=== PATIENT | female | born 1985 | race Caucasian/White ===

== ENCOUNTER 2021-04-02 14:28 | Emergency (ER) | payer MEDICAID ==
--- NOTE | 2021-04-02 15:26 | EDM.PDOC ---
ED HPI GENERAL MEDICAL PROBLEM - General Chief Complaint: Behavioral/Psych Stated Complaint: HARMFUL THOUGHTS Time Seen by Provider: 04/02/21 14:57 Source of Information: Reports: Patient, RN Notes Reviewed History Limitations: Reports: No Limitations - History of Present Illness INITIAL COMMENTS - FREE TEXT/NARRATIVE: Patient is a 35-year-old female who presents to the ER for the evaluation of anxiety and suicidal ideations that were passive. States she has a history of anxiety, and she has been on Zoloft, prazosin, and Lamictal for her mood management states that this seemed to work well when she was taking them however she attended [facility], and she states that they "cut her off because she did not need them anymore" about a month or 2 ago. She has been without her medications and has been feeling fairly okay but states that increased stressors in her home life, and at work have made things somewhat unbearable, and she notes that she had fleeting harmful thoughts last night, so she decided she should get checked out and would like to be put back on her medications. She is not complaining of any suicidal ideations or thoughts at this time. Patient denies any other sick-like symptoms, fever/chills, cough/shortness of breath, nausea/vomiting/diarrhea. - Related Data Allergies Allergy/AdvReac Type Severity Reaction Status Date / Time No Known Allergies Allergy Verified 04/02/21 15:04 Home Meds: Home Meds Prazosin HCl [Prazosin] 4 mg PO BEDTIME #60 capsule 04/02/21 [Rx] Sertraline [Zoloft] 100 mg PO DAILY #30 tab 04/02/21 [Rx] lamoTRIgine [Lamictal] 50 mg PO DAILY #60 tablet 04/02/21 [Rx] Past Medical History [employer] History: Reports: Psychiatric History: Reports: Anxiety, Depression, PTSD Social & Family History - Tobacco Use Tobacco Use Status *Q: Never Tobacco User Second Hand Smoke Exposure: No - Caffeine Use Caffeine Use: Reports: None ED ROS GENERAL - Review of Systems Review Of Systems: Comprehensive ROS is negative, except as noted in HPI. ED EXAM, GENERAL - Physical Exam Exam: See Below Exam Limited By: No Limitations General Appearance: Alert, WD/WN, No Apparent Distress Respiratory/Chest: No Respiratory Distress, Lungs Clear, Normal Breath Sounds, No Accessory Muscle Use, Chest Non-Tender Cardiovascular: Normal Peripheral Pulses, Regular Rate, Rhythm, No Edema Peripheral Pulses: 2+: Radial (L), Radial (R) GI/Abdominal: Normal Bowel Sounds, Soft, Non-Tender, No Distention, No Mass Extremities: Normal Inspection, Normal Capillary Refill Neurological: Alert, Oriented, Normal Cognition, No Motor/Sensory Deficits Psychiatric: Normal Affect, Normal Mood Skin Exam: Warm, Dry, Intact, Normal Color, No Rash Course - Vital Signs Last Recorded V/S: Last Vital Signs Temp 97.0 F 04/02/21 15:03 Pulse 96 04/02/21 15:03 Resp 20 04/02/21 15:03 BP 122/80 04/02/21 15:03 Pulse Ox 100 04/02/21 15:03 - Re-Assessments/Exams Free Text/Narrative Re-Assessment/Exam: 04/02/21 15:33 Patient presents to the ER for evaluation of her mood swings. We will go ahead and place her back on her medications as prescribed. I did get the dosing from clinic pharmacy. Refills of these meds have been sent. I did make it known to her that she will have to follow-up with primary care for ongoing management and further refills she did verbalize understanding. Departure - Departure Time of Disposition: 15:23 Disposition: Home, Self-Care 01 Condition: Good Clinical Impression: Anxiety, Encounter for medication refill - Discharge Information *PRESCRIPTION DRUG MONITORING PROGRAM REVIEWED*: No *COPY OF PRESCRIPTION DRUG MONITORING REPORT IN PATIENT TIKA: No Prescriptions: lamoTRIgine [Lamictal] 50 mg PO DAILY #60 tablet Prazosin HCl [Prazosin] 4 mg PO BEDTIME #60 capsule Sertraline [Zoloft] 100 mg PO DAILY #30 tab Instructions: Managing Anxiety, Adult Referrals: PCP,None [Primary Care Provider] - Forms: ED Department Discharge Additional Instructions: You were evaluated today for your ongoing anxiety, and need to have your medications refilled. After talking with you, I do agree that it would be best that you get started back on your normal medications and prescriptions have been sent for you. This will be Zoloft 100 mg daily, prazosin a total of 4 mg daily, and Lamictal a total of 50 mg daily. This is what the clinic pharmacy told us your last dosing was when you pick these up in December. These medications were electronically sent to [facility]. If you do not have a primary care provider already, I recommend that you follow- up with a provider in our clinic, any family practice provider would be able to provide you with the services. Our clinic telephone number [phone], please call in the morning to obtain an appointment with the provider, for follow-up of your symptoms that prompted your ER visit today. Do not hesitate to return to the ER at any time if symptoms change or worsen. Sepsis Event Note (ED) - Focused Exam Vital Signs: Vital Signs Temp Pulse Resp BP Pulse Ox 04/02/21 15:03 97.0 F 96 20 122/80 100
== END 2021-04-02 15:47 | disposition home or self-care (01) ==
LOC: JD.ED 14:28
DX: F41.9 Anxiety disorder, unspecified (principal); Z76.0 Encounter for issue of repeat prescription
CPT/HCPCS: 99283

== ENCOUNTER 2022-10-20 14:39 | Emergency (ER) | payer MEDICAID, OTHER ==
[2022-10-20] MEDS ORDERED: Ketorolac 30 MG/ML SDV IM ONE (15:06)
[2022-10-20] MEDS ORDERED: Orphenadrine 100 MG Tab.ER PO ONE (15:06)
[2022-10-20 15:56] LABS: BASOPHILS ABSOLUTE AUTO 0.02 K/mm3 (0.01-0.08); BASOPHILS PERCENT AUTO 0.4 % (0.1-1.2); EOSINOPHILS ABSOLUTE AUTO 0.03 K/mm3 (0.04-0.36); EOSINOPHILS PERCENT AUTO 0.7 (0.7-5.8); HEMATOCRIT 26.8 % (34.1-44.9); LYMPHOCYTES ABSOLUTE AUTO 1.21 K/mm3 (1.18-3.74); LYMPHOCYTES PERCENT AUTO 26.6 % (19.3-51.7); MEAN CORPUSCULAR HEMOGLOBIN 18.2 pg (25.6-32.2); MEAN CORPUSCULAR HGB CONC 27.2 g/dl (32.2-35.5); MEAN CORPUSCULAR VOLUME 66.8 fl (79.4-94.8); MEAN PLATELET VOLUME 10.5 fl (9.4-12.3); MONOCYTES ABSOLUTE AUTO 0.41 K/mm3 (0.24-0.36); NEUTROPHILS ABSOLUTE AUTO 2.88 K/mm3 (1.56-6.13); NEUTROPHILS PERCENT AUTO 63.3 % (34.0-71.1); PLATELET COUNT,PLT 246 K/mm3 (182-369); RED BLOOD CELL COUNT 4.01 M/mm3 (3.98-5.22); WHITE BLOOD CELL COUNT,WBC 4.55 K/mm3 (3.98-10.04)
[2022-10-20 16:11] LABS: HEMOGLOBIN 7.3 gm/dl (11.2-15.7)
[2022-10-20 16:19] LABS: A/G RATIO 1.3 (1-2); ALBUMIN 4.3 g/dl (3.4-5.0); ANION GAP 10.9 (5-15); BILIRUBIN TOTAL 0.4 mg/dL (0.2-1.0); BUN/CREATININE RATIO 18.6 (14-18); CALCIUM 9.2 mg/dL (8.5-10.1); CREATININE 0.7 mg/dL (0.55-1.02); EST CRCL DRUG DOSING (CG) 87.85 mL/min; POTASSIUM,K 3.9 mEq/L (3.5-5.1); PROTEIN TOTAL,TP 7.5 g/dl (6.4-8.2)
[2022-10-20] MEDS ORDERED: Sodium Chloride 0.9% 10 ML Syringe FLUSH PRN (16:41)
[2022-10-20] MEDS ORDERED: Sodium Chloride 0.9% 1,000 ML IV ONE (16:42)
[2022-10-20 17:02] LABS: SLIDE REVIEW ABNORMAL SMEAR
== END 2022-10-21 00:22 | disposition home or self-care (01) ==
LOC: JD.ED 14:39
DX: M54.2 Cervicalgia (principal); D64.9 Anemia, unspecified
CPT/HCPCS: 36415; 36430; 80053; 84484; 85025; 86850; 86900; 86901; 86922; 93005; 96372; 99283; A9270; J1885; J3490; J7030; P9016; 93010

== ENCOUNTER 2023-08-15 07:00 | Day surgery (SDC) | payer OTHER ==
[~2023-08-15 07:00] MED LIST: Sodium Chloride 0.9% 10 ML Syringe FLUSH PRN; Sodium Chloride 0.9% 10 ML Syringe FLUSH SCH
[2023-08-15] MEDS: Lactated Ringers 1,000 ML IV SCH (07:15)
[2023-08-15] MEDS ORDERED: Phenylephrine 1% 10 MG/ML SDV ONE (07:54)
[2023-08-15] MEDS ORDERED: Lidocaine 1% 5 ML VIAL ONE (07:54)
[2023-08-15] MEDS ORDERED: Rocuronium 50 MG/5 ML Vial ONE ×2 (07:54→07:55)
[2023-08-15] MEDS ORDERED: Propofol 200 MG/20 ML SDV ONE (07:54)
[2023-08-15] MEDS ORDERED: Midazolam 1 MG/ML 2 ML SDV ONE (07:55)
[2023-08-15] MEDS ORDERED: fentaNYL 100 MCG/2 ML SDV ONE ×2 (07:55→08:29)
[2023-08-15] MEDS ORDERED: Ondansetron 4 MG/2 ML SDV ONE (07:55)
[2023-08-15] MEDS ORDERED: Dexamethasone 4 MG/ML 5 ML MDV ONE (07:55)
[2023-08-15] MEDS ORDERED: ePHEDrine 50 MG/ML SDV ONE (08:15)
[2023-08-15] MEDS ORDERED: ceFAZolin 2 GM Vial ONE (08:15)
[2023-08-15] MEDS ORDERED: Sugammadex Sodium 200 MG/2 ML VIAL IV ONE ×2 (08:22→08:24)
[2023-08-15] MEDS: Bupivacaine 0.25% 10 ML SDV ONE (08:23)
[2023-08-15] MEDS: EPINEPHrine 1 MG/ML SDV ONE (08:23)
[2023-08-15] MEDS ORDERED: Naloxone 0.4 MG/ML SDV ONE (09:52)
[2023-08-15] MEDS ORDERED: HYDROmorphone 0.5 MG/0.5 ML Syringe ONE (10:31)
[2023-08-15] MEDS: HYDROmorphone 0.5 MG/0.5 ML Syringe IVPUSH STA (10:32)
[2023-08-15] MEDS ORDERED: HYDROmorphone 0.5 MG/0.5 ML Syringe IVPUSH PRN (10:34)
[2023-08-15] MEDS ORDERED: Ondansetron 4 MG/2 ML SDV IVPUSH PRN (10:34)
[2023-08-15] MEDS: Haloperidol Lactate 5 MG/ML SDV IVPUSH ONE (10:40)
[2023-08-15] MEDS: fentaNYL 100 MCG/2 ML SDV IVPUSH PRN (10:55)
[2023-08-15] MEDS: Acetaminophen/oxyCODONE 325-5 MG Tab PO PRN (14:24)
== END 2023-08-15 16:25 | disposition home or self-care (01) ==
LOC: JD.SDS 07:00
PROVIDERS: ATTEND Obstetrics & Gynecology
DX: D25.1 Intramural leiomyoma of uterus (principal); N80.03 Adenomyosis of the uterus; N72 Inflammatory disease of cervix uteri; N88.8 Other specified noninflammatory disorders of cervix uteri; N87.9 Dysplasia of cervix uteri, unspecified; K21.9 Gastro-esophageal reflux disease without esophagitis; F32.A Depression, unspecified; F41.9 Anxiety disorder, unspecified; Z79.899 Other long term (current) drug therapy
CPT/HCPCS: 36415; 58552; 86850; 86900; 86901; A9270; J0171; J0690; J1100; J1170; J1596; J1630; J2250; J2310; J2405; J2704; J3010; J3490; J7120; 00944; J2371

== ENCOUNTER 2023-09-02 04:38 | Emergency (ER) | payer OTHER ==
[2023-09-02] MEDS ORDERED: Sodium Chloride 0.9% 10 ML Syringe FLUSH PRN (05:11)
[2023-09-02] MEDS: Morphine 4 MG/ML Syringe IVPUSH ONE ×2 (05:25→06:25)
[2023-09-02] MEDS: Ondansetron 4 MG/2 ML SDV IVPUSH ONE (05:25)
[2023-09-02] MEDS: Sodium Chloride 0.9% 1,000 ML IV ONE (05:26)
[2023-09-02] MEDS: Iopamidol 612 MG/ML 100 ML Bottle IVPUSH ONE (05:46)
[2023-09-02 05:50] LABS: BASOPHILS PERCENT AUTO 0.2 % (0.0-1.0); HEMATOCRIT 36.6 % (37.0-47.0); HEMOGLOBIN 12.6 gm/dl (12.0-16.0); IMMATURE GRAN ABSOLUTE AUTO 0.03 K/mm3 (0.00-0.05); IMMATURE GRAN PERCENT AUTO 0.3 % (0.0-0.4); LYMPHOCYTES ABSOLUTE AUTO 0.5 K/mm3 (1.0-4.8); LYMPHOCYTES PERCENT AUTO 5.4 % (24.0-44.0); MEAN CORPUSCULAR HEMOGLOBIN 29.4 pg (28.0-32.0); MEAN CORPUSCULAR HGB CONC 34.4 g/dl (32.0-36.0); MEAN CORPUSCULAR VOLUME 85.3 fl (83.0-99.0); MEAN PLATELET VOLUME 10.8 fl (9.4-12.3); MONOCYTES ABSOLUTE AUTO 0.6 K/mm3 (0.0-0.8); MONOCYTES PERCENT AUTO 7.2 % (0.0-8.0); NEUTROPHILS ABSOLUTE AUTO 7.8 K/mm3 (1.8-7.7); NEUTROPHILS PERCENT AUTO 86.9 % (41.0-71.0); PLATELET COUNT,PLT 263 K/mm3 (150-400); RED BLOOD CELL COUNT 4.29 M/mm3 (4.10-5.30); WHITE BLOOD CELL COUNT,WBC 8.92 K/mm3 (3.9-11.3)
[2023-09-02 06:11] LABS: A/G RATIO 1.2 (1-2); ALBUMIN 3.9 g/dl (3.4-5.0); ANION GAP 16.5 (5-15); BILIRUBIN TOTAL 0.4 mg/dL (0.2-1.0); BUN/CREATININE RATIO 21.3 (14-18); CALCIUM 8.8 mg/dL (8.5-10.1); CREATININE 0.8 mg/dL (0.55-1.02); EST CRCL DRUG DOSING (CG) 76.47 mL/min; POTASSIUM,K 3.5 mEq/L (3.5-5.1); PROTEIN TOTAL,TP 7.2 g/dl (6.4-8.2)
[2023-09-02 06:53] LABS: APPEARANCE,URINE CLEAR (Clear); BILIRUBIN,URINE NEGATIVE (Negative); COLOR,URINE YELLOW (Yellow); GLUCOSE,URINE NEGATIVE (Negative); KETONES,URINE 1+ (Negative); LEUKOCYTE ESTERASE,URINE NEGATIVE (Negative); NITRITE,URINE NEGATIVE (Negative); OCCULT BLOOD,URINE NEGATIVE (Negative); PROTEIN,URINE NEGATIVE (Negative); UROBILINOGEN,URINE 0.2 (0.2-1.0)
[2023-09-02 06:59] LABS: BACTERIA,URINE RARE /hpf (FEW); EPITHELIAL CELLS,URINE NOT SEEN /hpf (0-5); MUCUS,URINE FEW /hpf (FEW); RBC,URINE NOT SEEN /hpf (0-5); WBC,URINE 0-5 /hpf (0-5)
== END 2023-09-02 07:20 | disposition home or self-care (01) ==
LOC: JD.ED 04:38
DX: R10.31 Right lower quadrant pain (principal); R10.32 Left lower quadrant pain; Z90.722 Acquired absence of ovaries, bilateral; Z90.710 Acquired absence of both cervix and uterus; K21.9 Gastro-esophageal reflux disease without esophagitis; Z91.013 Allergy to seafood; Z79.899 Other long term (current) drug therapy
CPT/HCPCS: 36415; 74177; 80053; 81001; 83605; 83690; 85025; 96361; 96374; 96375; 96376; 99284; J2270; J2405; J7030; Q9967